=== PATIENT | female | born 1995 | race Caucasian/White ===

== ENCOUNTER 2025-06-30 14:03 | Outpatient (CLI) | payer OTHER, SELFPAY ==
--- OUTSIDE RECORDS SUMMARY | 2024-10-20 12:30 | XMS_ITS ---
Author Organization [facility] ([address]) Address [address] [place] [address] Care Team Providers Care Business Advisor Name Role Phone ALBERTO Fisher Primary Care Provider UnavailBianca Michaels Unavailable [phone] Ethel Swenson Unavailable Unavailable REASON FOR VISIT Asthma follow-up Encounters Encounter Location Date Provider Diagnosis [facility] [address] [place] [address] 10/20/2024 Bianca Duenas Plan Of Treatment Next Appt Details Provider Name:Bianca williamson, 09/07/2025 02:15:00 PM, [address] [place], [address], Progress Notes * [place]OB:1995 (30 yo F)Acc No.[id number]:10/20/2024 Asthma F/U Patient: Charles STOLL Provider: DEBRA TraceyP-[place] :1995 A ge:29 Y S ex:Female Date:10/20/2024 Address:[address] [place], [place] [address] Pcp:ALBERTO Fisher Subjective: * Chief Complaints: * 1 . Asthma follow-up. * Medical History: Objective: * Vitals: Assessment: Plan: * Treatment: * Billing Information: * Visit Code: * Procedure Codes: * Electronic signature of Bianca Duenas DNP, FNP-C on 06/30/2025 at 02:06 PM CDT Sign off status: Pending * Provider: DEBRA Tracey Date: 0 10/20/2024 Generated for Vijay casillas/Saulo/Leisa on: 1 02:06 PM CDT
--- OUTSIDE RECORDS SUMMARY | 2025-03-02 12:30 | XMS_ITS ---
Author Organization [facility] [place] ([address]) Address [address] [place] [address] Care Team Providers Care Crank Hand Name Role Phone ALBERTO Fisher Primary Care Provider UnavailBianca Michaels Unavailable [phone] Ethel Swenson Unavailable Unavailable REASON FOR VISIT Episodes of raised, pruritic and erythematous wheals that worsen with cold temperatures, pressure and while in the sun. Taking Zyrtec and Singulair daily, worse symptoms this winter., ARC follow-up: Mostly itchy and watery eyes. Following medication regimen and avoidance measures., Frequent perceived wheezing and shortness of breath. Continues on Advair with significant benefit, ACT is 21. Recently had COVID-19, used rescue inhaler a few times., Intermittent dizziness previously reported, now resolved. Medications Medication SIG (Take, Route, Frequency, Duration) Notes Start Date End Date Status Fluticasone-Salmete rol 250 MCG-50 MCG 1 INH INHALED 2 TIMES A DAY; Duration: 90 DAYS *Please review and pick correct strength-formulat ion from Trendabl options. If intended option is not shown, discontinue and re-order from Quick Search* Active ZyrTEC Allergy 10 MG 1 tab(s) orally once a day Active Albuterol Sulfate HFA 108 (90 Base) MCG/ACT 2 puff(s) inhaled every 6 hours Active Clindamycin Phosphate 1 % 1 yusuf applied topically 2 times a day Active Multivitamin - 1 tab(s) orally once a day Active Oscar 1/20 1-20 MG-MCG 1 tablet Orally Once a day Active Famotidine 40 MG 1 tablet Orally Twice a day; Duration: 30 days Active Fluticasone Propionate 50 MCG/ACT 1 spray in each nostril Nasally Twice a day; Duration: 30 days Active ZYRTEC 10 mg 1 tab(s) orally Twice a day Active MONTELUKAST 10 mg 1 tab(s) orally once a day Active ALBUTEROL (EQV-PROAIR HFA) 90 mcg/inh 2 puff(s) inhaled every 6 hours; Duration: 30 days Active FLUTICASONE-SALMETE ROL 250 mcg-50 mcg 1 INH inhaled 2 times a day; Duration: 90 days Active HYDROXYZINE hydrochloride 25 mg 1 tab(s) orally once a day Active AZELASTINE NASAL 137 mcg/inh 2 spray(s) intranasally 2 times a day; Duration: 30 days Active Montelukast Sodium 10 MG Take 1 tablet by mouth once daily; Duration: 30 Active hydrOXYzine HCl 25 MG 1 tab(s) orally once a day Not-Taking Azelastine HCl 137 MCG/SPRAY 2 spray(s) intranasally 2 times a day; Duration: 30 days Not-Taking Encounters Encounter Location Date Provider Diagnosis [address] [address] 03/02/2025 Bianca Duenas Shortness of breath R06.02 ; Other urticaria L50.8 ; Allergic rhinitis due to pollen J30.1 ; Allergic rhinitis due to animal (cat) (dog) hair and dander J30.81 ; Other allergic rhinitis J30.89 ; Other chronic allergic conjunctivitis H10.45 ; Dizziness and giddiness R42 and Elevated blood-pressure reading, without diagnosis of hypertension R03.0 Assessments Encounter Date Diagnosis (ICD Code) Assessment Notes Treatment Notes Treatment Clinical Notes Section Notes 03/02/2025 Shortness of breath (ICD-10 - R06.02) At Charles's initial visit she reported shortness of breath and perceived wheezing that is triggered with activity and when laughing. She was using her rescue inhaler multiple times per week. No history of daily inhaler use or hospitalizations due to lower airway symptoms. Started trial of Advair, which Charles has noted significant benefit with. ACT is 21 due to recent COVID-19 infection. Today denies cough, wheezing or shortness of breath. - Spirometry obtained previously that showed reduced FVC, however TLC not measured, normal FEV1 and FEV1%. Repeat spirometry deferred again today due to recent COVID-19, will obtain next visit. Charles is in agreement. - Continue medium-dose Advair at this time. Charles is aware to rinse her mouth after use. - Continue CHANDRA as needed. - Treat atopic disease aggressively, seen plan below. - Follow-up in 3-4 months for further evaluation and management 03/02/2025 Other urticaria (ICD-10 - L50.8) Charles presented with complaints of erythematous, raised and pruritic wheals that occur with cold exposure, sun exposure and with pressure. She has noted occasional hand swelling with symptoms, no facial swelling. She was seen by dermatology, who started her on daily Zyrtec and Singulair, which she has found beneficial. If she holds antihistamines she notes generalized pruritus. She denies changes to her medication regimen, diet or environment when symptoms first started. - Given the history and presenting symptoms, consider probable chronic spontaneous urticaria. - Discussed checking labs for underlying autoimmune, thyroid, and mast cell conditions. Charles reports her PCP recently ordered labs, which were requested. Will review prior to ordering additional labs, however not yet received. - Due to worse symptoms in the winter, will increase Zyrtec to BID and adding Pepcid. We have discussed dressing warmly and staying out of the cold as best one can. Discussed carrying an AIE as a precaution, which Charles is not interested in at this time. - Briefly discussed Xolair for refractory symptoms. - Return follow-up in 3-4 months for further evaluation and management 03/02/2025 Allergic rhinitis due to pollen (ICD-10 - J30.1) Charles clearly suffers from atopic disease based upon our prior skin testing and clinical history. Accordingly, we have encouraged her medication regimen, discussed nasal washes and allergy-specific avoidance measures. - Charles is not interested in SCIT at this time, however she will consider in the future. - Continue medication regimen and avoidance measures. - Follow-up in 3-4 months as above 03/02/2025 Allergic rhinitis due to animal (cat) (dog) hair and dander (ICD-10 - J30.81) Follow allergen avoidance, meds and consider SCIT as an adjunctive treatment to current regimen 03/02/2025 Other allergic rhinitis (ICD-10 - J30.89) Follow allergen avoidance, meds and consider SCIT as an adjunctive treatment to current regimen 03/02/2025 Other chronic allergic conjunctivitis (ICD-10 - H10.45) Given ocular signs and symptoms I encouraged allergy avoidance measures and meds as above. If symptoms persist, consider adding additional medications including intraocular antihistamine/mast cell stabilizer, PRN and consider SCIT as an adjunctive measure 03/02/2025 Dizziness and giddiness (ICD-10 - R42) Resolved 03/02/2025 Elevated blood-pressure reading, without diagnosis of hypertension (ICD-10 - R03.0) BP elevated today without symptoms of urgency or emergency. Continue serial checks and follow-up with PCP Plan Of Treatment Medication Medication Name Sig Start Date Stop Date Notes Famotidine 40 MG 1 tablet Orally Twic e a day; Duration: 30 days Fluticasone Propionate 50 MCG/ACT 1 spray in each nostril Nasally Twice a day; Duration: 30 days ZYRTEC 10 mg 1 tab(s) orally Twice a day MONTELUKAST 10 mg 1 tab(s) orally once a day ALBUTEROL (EQV-PROAIR HFA) 9 0 mcg/inh 2 puff(s) inhaled every 6 hours; Duration: 30 days FLUTICASONE-SALMETEROL 250 mcg-50 mcg 1 INH inhaled 2 times a day; Duration: 90 days HYDROXYZINE hydrochloride 25 mg 1 tab(s) orally once a day AZELASTINE NASAL 137 mcg/inh 2 spray(s) intranasally 2 times a day; Duration: 30 days Treatment Notes Assessment Notes Shortness of breath At Charles's initial visit she reported shortness of breath and perceived wheezing that is triggered with activity and when laughing. She was using her rescue inhaler multiple times per week. No history of daily inhaler use or hospitalizations due to lower airway symptoms. Started trial of Advair, which Charles has noted significant benefit with. ACT is 21 due to recent COVID-19 infection. Today denies cough, wheezing or shortness of breath. - Spirometry obtained previously that showed reduced FVC, however TLC not measured, normal FEV1 and FEV1%. Repeat spirometry deferred again today due to recent COVID-19, will obtain next visit. Charles is in agreement. - Continue medium-dose Advair at this time. Charles is aware to rinse her mouth after use. - Continue CHANDRA as needed. - Treat atopic disease aggressively, seen plan below. - Follow-up in 3-4 months for further evaluation and management Other urticaria Charles presented with complaints of erythematous, raised and pruritic wheals that occur with cold exposure, sun exposure and with pressure. She has noted occasional hand swelling with symptoms, no facial swelling. She was seen by dermatology, who started her on daily Zyrtec and Singulair, which she has found beneficial. If she holds antihistamines she notes generalized pruritus. She denies changes to her medication regimen, diet or environment when symptoms first started. - Given the history and presenting symptoms, consider probable chronic spontaneous urticaria. - Discussed checking labs for underlying autoimmune, thyroid, and mast cell conditions. Charles reports her PCP recently ordered labs, which were requested. Will review prior to ordering additional labs, however not yet received. - Due to worse symptoms in the winter, will increase Zyrtec to BID and adding Pepcid. We have discussed dressing warmly and staying out of the cold as best one can. Discussed carrying an AIE as a precaution, which Charles is not interested in at this time. - Briefly discussed Xolair for refractory symptoms. - Return follow-up in 3-4 months for further evaluation and management Allergic rhinitis due to pollen Charles clearly suffers from atopic disease based upon our prior skin testing and clinical history. Accordingly, we have encouraged her medication regimen, discussed nasal washes and allergy-specific avoidance measures. - Charles is not interested in SCIT at this time, however she will consider in the future. - Continue medication regimen and avoidance measures. - Follow-up in 3-4 months as above Allergic rhinitis due to ani mal (cat) (dog) hair and dander Follow allergen avoidance, meds and consider SCIT as an adjunctive treatment to current regimen Other allergic rhinitis Follow allergen avoidance, meds and consider SCIT as an adjunctive treatment to current regimen Other chronic allergic conjunctivitis Gi george ocular signs and symptoms I encouraged allergy avoidance measures and meds as above. If symptoms persist, consider adding additional medications including intraocular antihistamine/mast cell stabilizer, PRN and consider SCIT as an adjunctive measure Dizziness and giddiness Resolved Elevated blood-pressure read ing, without diagnosis of hypertension BP elevated today without symptoms of urgency or emergency. Continue serial checks and follow-up with PCP Next Appt Details Follow Up: 3 Months, Reason: Evaluation and Management,Spirometry/Flow Volume Loop Provider Name:Bianca williamson, 09/07/2025 02:15:00 PM, [address] [place] [address], [phone], Progress Notes * Irma MORATAYAOB:1995 (30 yo F)Acc No.[id number]:03/02/2025 Asthma F/U Patient: Charles STOLL Provider: DEBRA Tracey :1995 A ge:29 Y S ex:Female Date:03/02/2025 Address:[address] [place], [place] [id number] Pcp:ALBERTO Fisher Subjective: * Chief Complaints: * 1 . Episodes of raised, pruritic and erythematous wheals that worsen with cold temperatures, pressure and while in the sun. Taking Zyrtec and Singulair daily, worse symptoms this winter.. 2. ARC follow-up: Mostly itchy and watery eyes. Following medication regimen and avoidance measures.. 3. Frequent perceived wheezing and shortness of breath. Continues on Advair with significant benefit, ACT is 21. Recently had COVID-19, used rescue inhaler a few times.. 4. Intermittent dizziness previously reported, now resolved.. * HPI: * Introduction: HPI: Sydney Morataya, a [id number] female with history of anxiety who returns for ARC, hives and shortness of breath follow-up. She returns in consultation with her hospice manager, ALBERTO Swenson.She is alone for today's visit. Charles presented to her initial visit with complaints of raised,erythematous and pruritic wheals that are triggered by cold weather, pressureand sun exposure. Also with generalized pruritus. This has been ongoing forseveral years. She was seen by dermatology, who started her on daily Zyrtec andSingulair, also hydroxyzine PRN. Charles has found this regimen beneficial. Shehas noted associated hand swelling, will have to take her engagement ring offwhen this occurs, otherwise denies associated symptoms. She denies correlationwith NSAIDs or alcohol consumption, does not take opioids. She denies changesto her diet, medication regimen or environment when symptoms first started. She admits to worse symptoms now that the temperature is cold. Symptoms do not occur every time sh eis outside, however when her face is more exposed she is more likely to develop wheals. Sydney rocha also reported frequent shortnessof breath and perceived wheezing. Symptoms worsen with activity and with laughing. Previously started trial of Advair, which Charles reports has significantly changed her symptoms. Reports she has experienced increased exercise tolerance. ACT is 21 due to COVID-19 two weeks ago, she used her rescue inhaler a handful of times. No antibiotics or steroids since last visit. No history of hospitalizations dueto lower airway symptoms. Sydney rocha endorses upper airway symptomsconcerning for uncontrolled atopic disease. Skin testing was performed to aeroallergens last visit and showed positive results to multiple seasonal and perennial allergens. She finds daily Zyrtec beneficial, trial Astelin without benefit. She hastwo dogs in her home. Today, she reports no fevers, chills, night sweats or other constitutional symptoms. * ROS: A LLERGY: runny nose Y es. s cratchy throat Y es. i tchy eyes Y es. e ar fullness Y es. s inus congestion Y es. P ositive p er the HPI and history, otherwise unremarkable. S PECIAL SENSES: Positve for n one. i tching in ears Y es. i tching eyes Y es. C ONSTITUTIONAL: weight gain Y es. f atigue Y es. P ositive for?none. E NT: Positive p er the HPI and history, otherwise unremarkable.? R ESPIRATORY: shortness of breath Y es. c ough Y es. P ositive p er the HPI and history, otherwise unremakable. O PHTHALMOLOGY: Positive for p er the HPI and history, otherwise unremarkable. i tching Y es. w atering Y es. r edness Y es. E NDOCRINOLOGY: fatigue Y es. c old intolerance Y es. h eat intolerance Y es. P ositive for n one. C ARDIOLOGY: palpitations Y es. s hortness of breath Y es. P ositive for n one. G ASTROENTEROLOGY: Positive for n one. U ROLOGY: Positive for n one. D ERMATOLOGY: mole Y es. d ry or sensitive skin Y es. h maria m (urticaria) Y es. P ositive for p er the HPI and history, otherwise unremakable. ? N EUROLOGY: Positive for n one. H EMATOLOGY/LYMPH: Positive for n one. M USCULOSKELETAL: Positive for n one. P SYCHOLOGY: high stress level Y es. d epression Y es. e ating disorder Y es. a nxiety Y es. P ositive for n one. F EMALE REPRODUCTIVE: heavy periods Y es. s exually active Y es. ? A ll other review of systems per the HPI and history, otherwise unremarkable. * Medical History: * Medications: T aking FLUTICASONE-SALMETEROL 250 mcg-50 mcg powder 1 INH inhaled 2 times a day , Taking ALBUTEROL (EQV-PROAIR HFA) 90 mcg/inh aerosol 2 puff(s) inhaled every 6 hours , Taking AZELASTINE NASAL 137 mcg/inh spray 2 spray(s) intranasally 2 times a day , Taking HYDROXYZINE hydrochloride 25 mg tablet 1 tab(s) orally once a day , Taking MONTELUKAST 10 mg tablet 1 tab(s) orally once a day , Taking ZYRTEC 10 mg tablet 1 tab(s) orally Twice a day , Taking Fluticasone Propionate 50 MCG/ACT Suspension 1 spray in each nostril Nasally Twice a day , Taking Oscar 1/20 1-20 MG-MCG Tablet 1 tablet Orally Once a day , Taking Fluticasone-Salmeterol 250 MCG-50 MCG POWDER 1 INH INHALED 2 TIMES A DAY , Notes to Pharmacist: *Please review and pick correct strength-formulation from Medispan options. If intended option is not shown, discontinue and re-order from Quick Search*, Taking ZyrTEC Allergy 10 MG Tablet 1 tab(s) orally once a day , Taking Albuterol Sulfate HFA 108 (90 Base) MCG/ACT Aerosol Solution 2 puff(s) inhaled every 6 hours , Taking Clindamycin Phosphate 1 % Gel 1 yusuf applied topically 2 times a day , Taking Multivitamin - Tablet 1 tab(s) orally once a day , Taking Famotidine 40 MG Tablet 1 tablet Orally Twice a day , Taking Montelukast Sodium 10 MG Tablet Take 1 tablet by mouth once daily , Not-Taking/PRN Azelastine HCl 137 MCG/SPRAY Solution 2 spray(s) intranasally 2 times a day , Not-Taking/PRN hydrOXYzine HCl 25 MG Tablet 1 tab(s) orally once a day Objective: * Vitals: * Examination: G eneral examination: General appearance: p leasant, well-developed, well-nourished, female, in no apparent distress, speaking in full sentences. HEENT: c onjunctiva are normal bilaterally, TMs without evidence of acute infection,, posterior oropharynx is clear without exudates. Oral cavity: n ormal, no lesions. Breasts : n ot performed. Heart: R RR, S1-S2, no murmurs, no rubs, no gallops. Lungs: c lear to auscultation in all lung ramirez, no wheezes or crackles. Neurologic exam: u nremarkable. Skin: n ormal, no visible rash, dermatographism, urticaria, angioedema. Back: n ormal. Genitalia: n ot performed. Assessment: * Assessment: 1. S hortness of breath - R06.02 (Primary) 2 . O ther urticaria - L50.8? 3. A llergic rhinitis due to pollen - J30.1 4 . A llergic rhinitis due to animal (cat) (dog) hair and dander - J30.81 5 . O ther allergic rhinitis - J30.89 6 . O ther chronic allergic conjunctivitis - H10.45 ?7. D izziness and giddiness - R42 8 . E levated blood-pressure reading, without diagnosis of hypertension - R03.0 Plan: * Treatment: 2. O ther urticaria Continue HYDROXYZINE tablet, hydrochloride 25 mg, 1 tab(s), orally, once a day; C ontinue MONTELUKAST tablet, 10 mg, 1 tab(s), orally, once a day; I ncrease ZYRTEC tablet, 10 mg, 1 tab(s), orally, Twice a day; S tart Famotidine Tablet, 40 MG, 1 tablet, Orally, Twice a day, 30 days, 60 Tablet, Refills 2. Notes: Charles presented with complaints of erythematous, raised and pruritic wheals that occur with cold exposure, sun exposure and with pressure. She has noted occasional hand swelling with symptoms, no facial swelling. She was seen by dermatology, who started her on daily Zyrtec and Singulair, which she has found beneficial. If she holds antihistamines she notes generalized pruritus. She denies changes to her medication regimen, diet or environment when symptoms first started. - Given the historyand presenting symptoms, consider probable chronic spontaneous urticaria. - Discussed checking labs for underlying autoimmune, thyroid, and mast cell conditions. Charles reports her PCP recently ordered labs, which were requested. Will review prior to ordering additional labs, however not yet received. - Due to worse symptoms in the winter, will increase Zyrtec to BID and adding Pepcid. We have discusseddressing warmlyand staying out of the cold as best one can. Discussed carrying an AIE as a precaution, which Charles is not interested in at this time. - Briefly discussed Xolair for refractory symptoms. - Return follow-up in 3-4 months for further evaluation and management 3. A llergic rhinitis due to pollen Continue AZELASTINE NASAL spray, 137 mcg/inh, 2 spray(s), intranasally, 2 times a day, 30 days, 1, Refills 0; C ontinue Fluticasone Propionate Suspension, 50 MCG/ACT, 1 spray in each nostril, Nasally, Twice a day, 30 days, 1, Refills 0. Notes: Charles clearly suffers from atopic disease based upon our prior skin testing and clinical history. Accordingly, we have encouraged her medication regimen, discussed nasal washes and allergy-specific avoidance measures. - Charles is not interested in SCIT at this time, however she will consider in the future. - Continue medication regimen and avoidance measures. - Follow-up in 3-4 months as above 4. A llergic rhinitis due to animal (cat) (dog) hair and dander Notes: Follow allergen avoidance, meds and consider SCIT as an adjunctive treatment to current regimen 5. O ther allergic rhinitis Notes: Follow allergen avoidance, meds and consider SCIT as an adjunctive treatment to current regimen 6. O ther chronic allergic conjunctivitis Notes: Given ocular signs and symptoms I encouraged allergy avoidance measures and meds as above. If symptoms persist, consider adding additional medications including intraocular antihistamine/mast cell stabilizer, PRN and consider SCIT as an adjunctive measure 7. D izziness and giddiness Notes: Resolved 8. E levated blood-pressure reading, without diagnosis of hypertension Notes: BP elevated today without symptoms of urgency or emergency. Continue serial checks and follow-up with PCP * Procedure Codes: 9 6160 PT-FOCUSED HLTH RISK ASSMT, Units: 2.00 , Modifiers: 76 , G8427 DOC MEDS VERIFIED W/[place], [address] Bianca Duenas - Incident-to * Preventive Medicine: Counseling: D iet a s tolerated. E xercise C ontinue activity as usual, Consider CHANDRA use PRN, prior to exercise as per the asthma action plan. M edication instruction: W atch for side effects of prescribed medications, Nasal steroid/antihistamine instruction: avoid septum, [place] teeth or rinse out mouth after the use of oral, inhaled steroids to prevent oral thrush. E ducation: A STHMA EDUCATION:, Our staff discussed pulmonary function testing and results with the patient/family, Our staff formulated an asthma action plan with the patient/family, HIVES EDUCATION:, Avoid opioid-containing analgesics, Avoid excessive alcohol use, Avoid NSAIDs (non-steroidal anti-inflammatories). E ducation 2: A RC EDUCATION: Our staff discussed the appropriate allergen avoidance measures and medication utilization including upper airway hygiene with daily nasal washes given the patient's clinical status and diagnoses. SCIT EDUCATION: Discussed allergy immunotherapy including the relative risks, benefits and alternatives to this treatment as an adjunctive measure to current therapy, Allergy Immunotherapy: Risks: bleeding, infection, allergic reaction, anaphylaxis = severe allergic reaction that can cause ; Benefits: reduced need for medications, improved symptoms, disease modification. Alternatives: watch/wait, change medication regimen, improve allergy avoidance measures, Our staff discussed the warning signs of anaphylaxis and the indications to use self-injectable epinephrine and seek urgent or emergent care. P atient education material sent to portal? Y es C are goal follow up plan BMI management provided Y es Above Normal BMI Follow-up D ietary management education, guidance, and counseling B P Management: LIFESTYLE RECOMMENDATION: H ypertension education REFERRAL TO ALTERNATIVE / PRIMARY CARE PROVIDER: Darvin johansen to general physician * Follow Up: 3 Months (Reason: Evaluation and Management,Spirometry/Flow Volume Loop) * Billing Information: * Visit Code: 42333 Office Visit, Est Pt., Level 4. Modifiers: 25 * Procedure Codes: 48482 PT-FOCUSED HLTH RISK ASSMT. Units: 2.00. Modifiers: 76 G8427 DOC MEDS VERIFIED W/[place]. [address] Bianca Duenas - Incident-to. * Electronic signature of Bianca Duenas DNP, FNP-C on 06/30/2025 at 02:06 PM CDT Sign off status: Pending * Provider: DEBRA Tracey Date: 0 03/02/2025 Generated for Vijay casillas/Saulo/Seesmnalini on: 1 02:06 PM CDT History and Physical Notes * HPI (History of Present Illness) Category Sub-Category Detail Notes Category Not es *Introduction HPI: Charles Morataya, a 29-year-old female with history of anxiety who returns for ARC, hives and shortness of breath follow-up. She returns in consultation with her hospice manager, ALBERTO Swenson. She is alone for today's visit. Charles presented to her initial visit with complaints of raised, erythematous and pruritic wheals that are triggered by cold weather, pressure and sun exposure. Also with generalized pruritus. This has been ongoing for several years. She was seen by dermatology, who started her on daily Zyrtec and Singulair, also hydroxyzine PRN. Charles has found this regimen beneficial. She has noted associated hand swelling, will have to take her engagement ring off when this occurs, otherwise denies associated symptoms. She denies correlation with NSAIDs or alcohol consumption, does not take opioids. She denies changes to her diet, medication regimen or environment when symptoms first started. She admits to worse symptoms now that the temperature is cold. Symptoms do not occur every time sh eis outside, however when her face is more exposed she is more likely to develop wheals. Charles also reported frequent shortness of breath and perceived wheezing. Symptoms worsen with activity and with laughing. Previously started trial of Advair, which Charles reports has significantly changed her symptoms. Reports she has experienced increased exercise tolerance. ACT is 21 due to COVID-19 two weeks ago, she used her rescue inhaler a handful of times. No antibiotics or steroids since last visit. No history of hospitalizations due to lower airway symptoms. Charles endorses upper airway symptoms concerning for uncontrolled atopic disease. Skin testing was performed to aeroallergens last visit and showed positive results to multiple seasonal and perennial allergens. She finds daily Zyrtec beneficial, trial Astelin without benefit. She has two dogs in her home. Today, she reports no fevers, chills, night sweats or other constitutional symptoms Examination Category Sub-Category Detail Notes Category Not es General examination HEENT: conjunctiva are normal bilaterally, TMs without evidence of acute infection,, posterior oropharynx is clear without exudates Heart: RRR, S1-S2, no murmu rs, no rubs, no gallops Lungs: clear to auscultatio n in all lung ramirez, no wheezes or crackles General appearance: pleasant, well-devel oped, well-nourished, female, in no apparent distress, speaking in full sentences Skin: normal, no visible r stef, dermatographism, urticaria, angioedema Neurologic exam: unremarkable Oral cavity: normal, no lesions Breasts : not performed Back: normal Genitalia: not performed
--- NOTE | ~2025-06-30 | US_ITS ---
EXAMINATION: US OB <=14 wk fetus w TV, US OB <= 14 wk fetus add gest DATE: 06/30/2025 15:24 INDICATION: Secondary amenorrhea during first trimester TECHNIQUE: Real-time pelvic ultrasound utilizing both a transvaginal and transabdominal probe was performed. The interpreting radiologist was not present for the study. COMPARISON: None. FINDINGS: The uterus measures 9.2 x 5.3 x 6.1 cm. There are 2 separate intrauterine gestational sacs by a thick membrane. A yolk sac and pole are identified in each gestational sac. Gestational sac A is positioned more cephalad on the right with mean sac diameter of 2.4 cm. The crown rump length for fetus A measures 8 mm, which correlates with an estimated gestational age of 6 weeks and 5 days. heart motion is identified measuring 165 bpm beats per minute (bpm) by M-mode Doppler. Gestational sac B measures 1.5 cm. The crown rump length for fetus B measures 6 mm, which correlates with an estimated gestational age of 6 weeks and 3 days. Per notation of the sales and marketing director, heart motion was subtly evident on real- time grayscale imaging but was unable to be clearly distinguished on the M-mode Doppler in order to determine a heart rate. The right ovary measures 2.4 x 2.3 x 1.8 cm. The left ovary measures 2.0 x 1.8 x 1.3 cm. There is no free fluid in the pelvis. IMPRESSION: 1. Dichorionic, diamnionic with 2 living fetuses. 2. Gestational age by ultrasound of 6 weeks and 4 days +/- 4 day(s) based upon crown-rump length of the larger fetus with ultrasound estimated date of delivery (IRAJ) of 02/19/2026. Reviewed, dictated and finalized at location A. IMPRESSION: 1. Dichorionic, diamnionic with 2 living fetuses. 2. Gestational age by ultrasound of 6 weeks and 4 days +/- 4 day(s) based upon crown-rump length of the larger fetus with ultrasound estimated date of delive ry (IRAJ) of 02/19/2026.
--- OUTSIDE RECORDS SUMMARY | 2025-06-30 14:07 | XMS_ITS | Patient Health Record ---
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 If intended option is not shown, discontinue and re-order from Quick Search* Active Albuterol Sulfate HFA 108 (90 Base) MCG/ACT 2 puffs as needed Inhalation every 4 hrs; Duration: 30 days 05/25/2025 Active ZyrTEC Allergy 10 MG 1 tab(s) orally once a day Active Fluticasone-Salmete rol 250-50 MCG/ACT 1 puff Inhalation Twice a day; Duration: 90 days 05/25/2025 Active Albuterol Sulfate HFA 108 (90 Base) MCG/ACT 2 puff(s) inhaled every 6 hours Active AZELASTINE NASAL 137 mcg/inh 2 spray(s) intranasally 2 times a day; Duration: 30 days Active Montelukast Sodium 10 MG Take 1 tablet by mouth once daily; Duration: 30 Active ZYRTEC 10 mg 1 tab(s) orally Twice a day Active Clindamycin Phosphate 1 % 1 yusuf applied topically 2 times a day Active Azelastine HCl 137 MCG/SPRAY 2 spray(s) intranasally 2 times a day; Duration: 30 days Not-Taking Fluticasone Propionate 50 MCG/ACT 1 spray in each nostril Nasally Twice a day; Duration: 30 days Active Multivitamin - 1 tab(s) orally once a day Active hydrOXYzine HCl 25 MG 1 tab(s) orally once a day Not-Taking HYDROXYZINE hydrochloride 25 mg 1 tab(s) orally once a day Active MONTELUKAST 10 mg 1 tab(s) orally once a day Active Famotidine 40 MG 1 tablet Orally Twice a day; Duration: 30 days Active Social History Tobacco Use: Social History Observation Description Date Details (start date - stop date) Never Smoker NA - NA Smoking Smart Form: Question Answer Notes Are you a: never smoker Tobacco Control (Standard) Question Answer Notes Tobacco use: Nonsmoker AUDIT-C (Standard) Question Answer Notes Did you have a drink containing alcohol in the p ast year? No Points 0 Interpretation Negative Problems Problem Type SNOMED Code ICD Code Onset Dates Problem Status W/U Status Risk Notes Problem Shortness of breath (203943257) Shortness of breath (R06.02) Active confirmed Problem Chronic allergic conjunctivitis (05730120) Other chronic allergic conjunctivitis (H10.45) Active confirmed Problem Allergic rhinitis caused by pollen (disorder) (58670380) Allergic rhinitis due to pollen (J30.1) Active confirmed Problem Allergic rhinitis (19928584) Other allergic rhinitis (J30.89) Active confirmed Problem Urticaria (529989046) Other urticaria (L50.8) Active confirmed Problem Allergic rhinitis caused by animal hair and dander (821048179799376) Allergic rhinitis due to animal (cat) (dog) hair and dander (J30.81) Active confirmed Vital Signs Blood pressure diastolic 94 mm Hg 05/25/2025 Oximetry 99 % 05/25/2025 Height 67 in 05/25/2025 Blood pressure systolic 150 mm Hg 05/25/2025 Weight 353.6 lbs 05/25/2025 BMI 55.38 kg/m2 05/25/2025 Encounters Encounter Location Date Provider Diagnosis ALIYAH Quezada [address] [place] [id number] 11/03/2024 Bianca Duenas Shortness of breath R06.02 ; Other urticaria L50.8 ; Allergic rhinitis due to pollen J30.1 ; Allergic rhinitis due to animal (cat) (dog) hair and dander J30.81 ; Other allergic rhinitis J30.89 ; Other chronic allergic conjunctivitis H10.45 ; Dizziness and giddiness R42 and Elevated blood-pressure reading, without diagnosis of hypertension R03.[address] [phone] 05/25/2025 Bianca Duenas Shortness of breath R06.02 ; Other urticaria L50.8 ; Allergic rhinitis due to pollen J30.1 ; Allergic rhinitis due to animal (cat) (dog) hair and dander J30.81 ; Other allergic rhinitis J30.89 ; Other chronic allergic conjunctivitis H10.45 ; Dizziness and giddiness R42 and Elevated blood-pressure reading, without diagnosis of hypertension R03.[address] [phone] 08/16/2024 Bianca Duenas Shortness of breath R06.[address] [address] 04/17/2025 Bianca Duenas [address] [phone] 05/25/2025 Bianca Duenas Assessments Encounter Date Diagnosis (ICD Code) Assessment Notes Treatment Notes Treatment Clinical Notes Section Notes 08/16/2024 Shortness of breath (ICD-10 - R06.02) 11/03/2024 Shortness of breath (ICD-10 - R06.02) At [place]'s initial visit she reported shortness of breath [...] 3-4 months for further evaluation and management 11/03/2024 Other urticaria (ICD-10 - L50.8) Charles presented [...] 3-4 months for further evaluation and management 05/25/2025 Shortness of breath (ICD-10 - R06.02) At Charles's initial visit she reported shortness of breath and perceived wheezing that is triggered with activity and when laughing. She was using her rescue inhaler multiple times per week. No history of daily inhaler use or hospitalizations due to lower airway symptoms. Started trial of Advair, which Charles has noted significant benefit with. ACT is 21 today. She reports CHANDRA use while [place] b[place] in [place]. - Spirometry obtained previously that showed reduced FVC, however TLC not measured, normal FEV1 and FEV1%. Repeat spirometry deferred today by Charles, discussed that we must obtain next visit. - Continue medium-dose Advair at this time. Charles is aware to rinse her mouth after use. - Continue CHANDRA as needed, refill provided. - Treat atopic disease aggressively, seen plan below. - Follow-up in 3-4 months for further evaluation and management 05/25/2025 Other urticaria (ICD-10 - L50.8) Charles presented [...] 3-4 months for further evaluation and management 05/25/2025 Allergic rhinitis due to pollen (ICD-10 - [...] - Follow-up in 3-4 months as above 11/03/2024 Allergic rhinitis due to pollen (ICD-10 - [...] - Follow-up in 3-4 months as above 11/03/2024 Allergic rhinitis due to animal (cat) (dog) hair and dander (ICD-10 - J30.81) Follow allergen avoidance, meds and consider SCIT as an adjunctive treatment to current regimen 05/25/2025 Allergic rhinitis due to animal (cat) (dog) hair and dander (ICD-10 - J30.81) Follow allergen avoidance, meds and consider SCIT as an adjunctive treatment to current regimen 05/25/2025 Other allergic rhinitis (ICD-10 - J30.89) Follow allergen avoidance, meds and consider SCIT as an adjunctive treatment to current regimen 11/03/2024 Other allergic rhinitis (ICD-10 - J30.89) Follow allergen avoidance, meds and consider SCIT as an adjunctive treatment to current regimen 11/03/2024 Other chronic allergic conjunctivitis (ICD-10 - H10.45) Given ocular signs and symptoms I encouraged allergy avoidance measures and meds as above. If symptoms persist, consider adding additional medications including intraocular antihistamine/mast cell stabilizer, PRN and consider SCIT as an adjunctive measure 05/25/2025 Other chronic allergic conjunctivitis (ICD-10 - H10.45) Given ocular signs and symptoms I encouraged allergy avoidance measures and meds as above. If symptoms persist, consider adding additional medications including intraocular antihistamine/mast cell stabilizer, PRN and consider SCIT as an adjunctive measure 05/25/2025 Dizziness and giddiness (ICD-10 - R42) Resolved 11/03/2024 Dizziness and giddiness (ICD-10 - R42) Resolved 11/03/2024 Elevated blood-pressure reading, without diagnosis of hypertension (ICD-10 - R03.0) BP elevated today without symptoms of urgency or emergency. Continue serial checks and follow-up with PCP 05/25/2025 Elevated blood-pressure reading, without diagnosis of hypertension (ICD-10 - R03.0) BP elevated today without symptoms of urgency or emergency. Continue serial checks and follow-up with PCP Plan Of Treatment Next Appt Details Provider Name:Bianca williamson, 09/07/2025 02:15:00 PM, [address] [place] [address], [phone], Insurance Providers Payer Name Payer Address Payer Phone Subscriber Number Group Number Insured Name Patient Relationship to Insured Coverage Start Date Coverage End Date Sanjay FOWLER [id number] Iraj sunshineCHARIS [phone] [id number] Charles Morataya Self - patient is the insured 1 Medical (General) History Medical History History ICD Code Binge eating disorder Anxiety Surgical History Surgery Date(Month/Year) None Hospitalization History Reason Date(Month/Year) None
== END 2025-06-30 14:04 | disposition home or self-care (01) ==
PROVIDERS: PCP Nurse Practitioner; Visit Provider Obstetrics & Gynecology
DX: N91.1 Secondary amenorrhea (principal)
CPT/HCPCS: 76801; 76802; 76817